=== PATIENT | female | born 1995 | race Caucasian/White ===

== ENCOUNTER 2017-02-24 23:58 | Emergency (ER) | payer SELFPAY ==
[2017-02-25 00:12] VITALS: BP 118/81
[2017-02-25] MEDS ORDERED: INSULIN REGULAR, HUMAN 100 UNITS/ML VIAL SC ONE (00:41)
[2017-02-25] MEDS ORDERED: INSULIN REGULAR, HUMAN 100 UNITS/ML VIAL ONE (00:43)
--- NOTE | 2017-02-25 00:48 | ERNOTE ---
Medical Problem HPI - Narrative Date of Service: 02/25/17 - General Chief Complaint: Diabetes Related Problem Time Seen by Provider: 02/25/17 00:02 Source: patient - Immun/Allergies/Home Medications Immunizations: IMMUNIZATION HX Immunizations Up to Date Yes History of Influenza Vaccine Yes Hx Pneumococcal Vaccination No Allergies/Adverse Reactions: Allergies nortriptyline Allergy (Intermediate, Verified 02/25/17 00:13) Swelling of Tongue cefsulodin Allergy (Mild, Verified 02/25/17 00:13) Hives loracarbef [From Lorabid] Allergy (Verified 02/25/17 00:13) Home Medications: HOME MEDICATIONS HYDROcodone/ACETAMINOPHEN [Hydrocodon-Acetaminophen 5-325] 1 each PO PRN PRN [Last Taken Unknown] Insulin Aspart [Novolog] 1,000 units 02/25/17 [Last Taken Unknown] Insulin Glargine,Hum.rec.anlog [Lantus] 10 units SC BID 02/25/17 [Last Taken Unknown] - History of Present History Narrative: This is a 21-year-old female who comes to the emergency department after having nausea and vomiting. The patient takes Levemir, 10 minutes twice a day. She also uses a sliding scale of NovoLog. The patient states that she ran out of insulin earlier today. The patient is in town visiting from out of town. She says she does not have money to get home. She says the people she is staying with cannot give her money for gas to get home. She says her family cannot give her money to get gas to get home. The patient says that she has insurance from her parents. She did not bring enough insulin to cover her for all this time. She believes the wrist she will be able to get home is Friday when the person she is staying with can loan her some money. Patient says that when her blood sugar runs high, it was 280 earlier, that she sometimes get nausea and vomiting. She feels better since her insulin was given to her earlier requested further insulin here. Review of Systems - Review of Systems Constitutional: Present: no symptoms reported EYE: Present: no symptoms reported ENT: Present: no symptoms reported Respiratory: Present: no symptoms reported Cardiology: Present: no symptoms reported Gastrointestinal/Abdominal: Present: nausea, vomiting. Absent: constipation, abdominal pain, drinking less Genitourinary: Present: no symptoms reported Musculoskeletal: Present: no symptoms reported Skin: Present: no symptoms reported, change in color Endocrine: Present: other Hematologic/Lymphatic: Present: no symptoms reported - high sugars not taking insulin Psych: Present: no symptoms reported All Other Systems: All systems neg except as marked - Patient's Past Medical History Patient History - Medical: Diabetes Type 1 Patient History - Cardiac/Respiratory: No pertinent hx Patient History - Cancer: No Hx of Cancer Patient History - Surgical Procedures: No surgical history Patient History - Other: None LMP (females 10-50): other - Social History Living Situations: other Abuse History: No History of abuse Psych History: No pertinent hx Smoking Status: Current every day smoker Have you smoked in the past 12 months: Yes Do you dip or chew tobacco: No Alcohol Use: rarely Drug Use: none - Immunizations Immunizations Up to Date: Yes Hx Pneumococcal Vaccination: No History of Influenza Vaccine: Yes Physical Exam - Physical Exam General Appearance: Present: wd/wn, alert, no apparent distress Head Exam: Present: normal inspection, no evidence of injury Eye Exam: Normal inspection: bilateral, PERRL: bilateral, EOMI: bilateral Ears, Nose, Throat: Present: normal ENT inspection, normal pharynx Neck: Present: normal inspection, nontender Respiratory: Present: no respiratory distress, normal breath sounds, no accessory muscle use, chest nontender, lungs clear Cardiovascular/Chest: Present: regular rate, rhythm, no murmur, normal peripheral pulses Gastrointestinal/Abdominal: Present: normal bowel sounds, nontender, nondistended, soft Back Exam: Present: normal inspection, normal range of motion, no CVA tenderness , no vertebral tenderness Extremity Exam: Present: normal inspection, non-tender, normal range of motion, no edema ED Progress - Vital Signs Patient's Vital Signs:: I have reviewed the patient's vital signs. Vital Signs: Vital Signs 02/25/17 00:06 Temperature 35.9 C L Pulse Rate 131 H Respiratory 14 Rate Blood Pressure 118/81 O2 Sat by Pulse 97 Oximetry - Progress/Reassessment Chief Complaint: Diabetes Related Problem Plan - Plan Plan: The patient's tachycardic. I have explained to her that I would like to get some labs and give her fluids. The patient says she just wants to go home. She is willing to sign a form AGAINST MEDICAL ADVICE. I have discussed the risks benefits and alternatives with the patient she agrees. We have just rechecked her heart rate was 112. The patient says she feels better and wants to go Departure Clinical Impression: Hyperglycemia - Departure Disposition: Home self-care Condition: Fair Instructions: Hyperglycemia, [id number] Additional Instructions: As we discussed it is important that you get your insulin. Unfortunately I cannot give you a noel of Levemir or gave him NovoLog to go home with. These are prescriptions that he will need to fill at the pharmacy. I am also unable to give you anything which would allow you to get these medicines without cost. I have rewritten these prescriptions for U you should be able to fill them at any IV. He should be able to fill them really at any pharmacy, and they may be able to call IV to get your insurance information. I cannot tell you what the co-pay will be. Certainly if you have persistent nausea and vomiting or if you have very high sugars you should return to the ER. It is important that she bring your blood sugar monitoring equipment with you at all times. If he develop new concerning symptoms return to the ER.
[2017-02-25] MEDS ORDERED: NORMAL SALINE 1,000 ML IV ONE (00:51)
== END 2017-02-25 01:07 | disposition home or self-care (01) ==
LOC: ER 23:58
DX: R73.9 Hyperglycemia, unspecified (principal); F17.200 Nicotine dependence, unspecified, uncomplicated; Z79.4 Long term (current) use of insulin; Z53.29 Procedure and treatment not carried out because of patient's decision for other reasons